=== PATIENT | male | born 2000 | race Two or more races ===

== ENCOUNTER 2025-01-09 19:17 | Emergency (ER) | payer OTHER, SELFPAY ==
[2025-01-09 19:18] VITALS: BMI 25.7
[2025-01-09 19:48] VITALS: BP 151/89; PULSE 78; RESP 18; TEMP 37; O2SAT 95
--- NOTE | 2025-01-09 19:56 | PD.EDWOUND ---
ED Wound/Laceration-RME/HPI General Chief Complaint: Wound/Laceration Stated Complaint: LACERATION TO RIGHT WRIST, WORK INJURY Time Seen by Provider: 01/09/25 19:51 Source: patient, RN notes reviewed and old records reviewed Arrival date/time: 01/09/25 19:17 Mode of arrival: ambulatory Limitations: no limitations RME / HPI RME / HPI narrative: 24yom presents to ED for hand laceration that occurred at work today. Patient reports accidentally cutting right hand on an HVAC metal pipe. 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 Related Data Previous Rx's ?Medication ?Instructions ?Recorded acetaminophen 500 mg capsule 1,000 mg (2 x 500 mg) PO Q8HR PRN 07/17/19 pain #60 caps Allergies Allergy/AdvReac Type Severity Reaction Status Date / Time No Known Allergies Allergy Verified 07/17/19 07:25 Review of Systems Review of Systems Systems Reviewed: All systems reviewed, normal except as documented Integumentary/Breasts Comments: Reports laceration Past Medical History Surgical History OTHER SURGICAL HX: Appendectomy Social History SMOKING STATUS: Never smoker SUBSTANCE USE: does not use ALCOHOL: Never Past Medical History Comments PMH COMMENT: Denies past medical history ED Exam General Limitations: Present no limitations General appearance: Present alert and in no apparent distress Head Head exam: Present atraumatic and normocephalic Eye Eye exam: Present normal appearance, PERRL and EOMI ENT ENT exam: Present normal exam and mucous membranes moist Neck Neck exam: Present normal inspection and full ROM Chest Chest inspection: Present normal inspection and symmetric chest wall rise Respiratory Respiratory exam: Present normal lung sounds bilaterally; Absent respiratory distress Cardiovascular Cardiovascular exam: Present regular rate and normal rhythm Extremities Exam Extremities exam: Present other (FROM right hand. <2s cap refill, sensation intact) Neurological Exam Neurological exam: Present alert and oriented X3 Psychiatric Psychiatric exam: Present normal affect and normal mood Skin Skin exam: Present other (1.5cm laceration to dorsal right hand. Mild wound gaping, no active bleeding) Course Quality Measures none Orders Category Date Time Status TET,DIP/PERT AC (Adult)-Tdap [Boostrix Adult (Tdap) Med 01/09/25 20:03 Discontinued Vacc] 0.5 ml IMI .ONCE ONE Vital Signs Vital signs: Vital Signs Temperature 98.6 F 01/09/25 19:48 Pulse Rate 78 01/09/25 19:48 Respiratory Rate 18 01/09/25 19:48 Blood Pressure 151/89 H 01/09/25 19:48 Pulse Oximetry (%) 95 01/09/25 19:48 Oxygen Delivery Method Room Air 01/09/25 19:48 PROCEDURES: Laceration Laceration 1: Site: hand Side (If applicable): right Size (cm): 1.5 Description: linear Depth: simple, single layer Local Anesthetic: lidocaine 1% Amount of anesthesia used (mL): 2 Pre-repair: irrigated extensively (cleaned with wound cleanser, saline) Skin layer closed with: other (ethilon) Suture size (cm): 4-0 Number of sutures: 3 Technique: simple, interrupted Wound / Laceration MDM Narrative MDM Narrative:: 24yom presents to ED for hand laceration that occurred at work today. Patient reports accidentally cutting right hand on an HVAC metal pipe. 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 Laceration repaired with sutures. Patient tolerated procedure well, condition improved. Home wound care discussed, tetanus vacc updated. Instructed to return to ED or PCP in 8-10 days for suture removal. Stable for discharge, RTED precautions given. Patient data External records reviewed:: [facility] previous records (07/17/2019 ED visit for cholelithiasis) Clinical information provided by:: patient and parent Social determinants that could affect healthcare access:: none Patient has the following chronic illnesses:: None How is presenting disease/condition affected by chronic disease/condition?: no chronic disease Evaluation data The following diagnostics were reviewed and interpreted by me:: other (specify) (None) Lab and/or radiology exams considered but not ordered:: Hand x-rays: Do not suspect fracture or foreign body Interpretation Summary: na Medications / Prescriptions Medications or Prescriptions considered but not ordered:: No antibiotics recommended at this time Medication administrations:: Medication Administration History Discontinued Medications Diphtheria/Tetanus/Acell Pertussis (Diphth,Pertuss(Acell),Tet Vac 0.5 Ml Syr- Adult) 0.5 ml IMi .ONCE ONE Stop: 01/09/25 20:04 Last Admin: 01/09/25 21:31 Dose: 0.5 ml Documented By: RC Above medication administered in ED Consultations Consultation(s) initiated? (list below): No Diagnosis Wound Differential Diagnosis: laceration, abrasion and avulsion of skin Most likely diagnosis given after review of the tests above:: hand laceration Admission Indicated Admission indicated?: not indicated Admission Request Was there a request for admission?: No Disposition Plan Disposition Plan: Discharge Discharge Attestation Discharge Attestation: The patient and all family members were given an opportunity to ask questions and understood the discharge instructions. Discharge instructions specifically effects, indications for sooner follow up or return to the emergency department, and the expected course of current diagnosis. Patient condition: Stable Discharge Plan Plan Patient Disposition: HOME (Self Care) Patient condition on transfer: Stable Prescriptions/Referrals Prescriptions/Med Rec: No Action acetaminophen 500 mg capsule 1,000 mg PO Q8HR PRN (Reason: pain) Qty: 60 0RF Referrals: Alex([facility])Rayray NP [Primary Care Provider] - In 1 week Problem List Clinical Impression: Laceration of right hand Patient/Caregiver Discharge Instructions Education Materials: ED Laceration, Hand: All Closures Additional Instructions: Return to ER or PCP in 8-10 days for suture removal. Print Language: Libyan Stand Alone Forms: Nilda Award Info., Work/School Release, Patient Portal Info Letter ROSE/LALI Supervising Physician MARY Supervising Physician: Josh
[2025-01-09] MEDS: DIPHTH,PERTUSS(ACELL),TET VAC 0.5 ML SYR- ADULT IMi (21:31)
== END 2025-01-09 21:47 | disposition home or self-care (01) ==
PROVIDERS: Emergency Provider Emergency Medicine; PCP Nurse Practitioner Family
DX: S61.511A Laceration without foreign body of right wrist, initial encounter (principal); Y99.0 Civilian activity done for income or pay; W45.8XXA Other foreign body or object entering through skin, initial encounter
CPT/HCPCS: 12002; 90471; 90715; 99281

== ENCOUNTER 2025-02-28 23:03 | Emergency (ER) | payer SELFPAY ==
[2025-02-28 23:45] VITALS: BP 147/100; PULSE 89; RESP 18; TEMP 37.2; O2SAT 98
--- NOTE | 2025-03-01 00:17 | EDNOTE_ITS ---
Upper Respiratory Inf. RME/HPI General Chief Complaint: Dental/Oral/Throat Stated Complaint: SORE THROAT Time Seen by Provider: 02/28/25 23:24 Arrival date/time: 02/28/25 23:03 RME / HPI RME / HPI Narrative: See MDM for Dr. Saravia's HPI Documentation. Related Data Previous Rx's ?Medication ?Instructions ?Recorded acetaminophen 500 mg capsule 1,000 mg (2 x 500 mg) PO Q8HR PRN 07/17/19 pain #60 caps amoxicillin 875 mg-potassium 1 tab PO BID #20 tabs clavulanate 125 mg tablet ibuprofen 800 mg tablet 800 mg PO Q8H PRN pain #30 t abs 03/01/25 prednisone 50 mg tablet 50 mg PO BID 3 days #6 tabs 03/01/25 Allergies Allergy/AdvReac Type Severity Reaction Status Date / Time No Known Allergies Allergy Verified 02/28/25 23:03 Review of Systems Review of Systems Systems Reviewed: All systems reviewed, normal except as documented Past Medical History Family History FAMILY HISTORY: Positive Family Cardiac Disorders Surgical History SURGICAL: Positive Eye Surgery and Abdominal Surgery ED Exam Narrative Physical exam: See MDM for Dr. Saravia's Physical Exam Documentation. Course Quality Measures none Orders Category Date Time Status Bedside COVID-19 Antigen Test NOW Care 02/28/25 23:56 Completed Bedside Influenza A&B Antigen Test NOW Care 02/28/25 23:56 Completed Bedside STREP Test NOW Care 02/28/25 23:56 Completed Bilirubin,Direct Stat Lab 02/28/25 23:59 Completed Blood Culture (Lab) Stat Lab 02/28/25 23:59 Results CBC Stat Lab 02/28/25 23:59 Completed CMP [Comprehensive Metabolic Panel] Stat Lab 02/28/25 23:59 Completed CRP [C-Reactive Protein] Stat Lab 02/28/25 23:59 Completed ESR [Sed Rate (ESR)] Stat Lab 02/28/25 23:59 Completed Lactate (Lactic Acid) Stat Lab 02/28/25 23:59 Completed Magnesium Stat Lab 02/28/25 23:59 Completed Wallace Screen Stat Lab 02/28/25 23:56 Completed Procalcitonin Stat Lab 02/28/25 23:59 Completed UA, C/S IF [Urinalysis, C/S if Indicated] Stat Lab 02/28/25 23:59 Stop Req Ampicillin/Sulbac Inj [Unasyn Inj] 3 gm Med 03/01/25 00:39 Discontinued Sodium Chloride 0.9% (Pop) [NS 0.9% mini bag] 100 ml IV X1 DiphenhydrAMINE INJ [Benadryl Inj] Med 03/01/25 00:48 Discontinued 50 mg IVP X1 STA Ketorolac Inj [Toradol Inj] Med 02/28/25 23:56 Discontinued 30 mg IVP X1 ONE MethylPREDNISolone.* [SoluMEDROL Inj] Med 02/28/25 23:56 Discontinued 125 mg IVP X1 ONE MethylPREDNISolone.* [SoluMEDROL Inj] Med 03/01/25 00:48 Discontinued 125 mg IVP X1 ONE Morphine* Inj Med 02/28/25 23:56 Discontinued 4 mg IV X1 ONE Ondansetron Inj [Zofran Inj] Med 02/28/25 23:56 Discontinued 4 mg IVP X1 ONE POTASSIUM CHL 10% Liq 15 ML Med 03/01/25 01:29 Discontinued 40 meq PO X1 ONE Sodium Chloride 0.9% 1000 ml [Ns] 1,000 ml Med 02/28/25 23:56 Discontinued IV 999 mls/hr Vital Signs Vital signs: Vital Signs Temperature 99.0 F 02/28/25 23:45 Pulse Rate 89 02/28/25 23:45 Respiratory Rate 18 02/28/25 23:45 Blood Pressure 147/100 H 02/28/25 23:45 Pulse Oximetry (%) 98 02/28/25 23:45 Oxygen Delivery Method Room Air 02/28/25 23:45 Upper Respiratory Infection MDM Narrative MDM Narrative:: This section includes all my notes and documentations, including HPI, PE, and ED course. Maco Saravia MD HPI: 24 y/o male presents with sore throat, voice hoarseness, and fever x 3 days. No other complaints. ROS: All negative except as documented in HPI. Physical Exam: General: Alert and oriented. Eyes: Conjunctivae and lids clear. ENT: No nasal congestion. Pharynx erythematous with exudate of the tonsils. TM normal bilaterally. Neck: Supple. Heart: RRR. Lungs: No respiratory distress. Good air movement. No rhonchi, wheezing, rales. Abdomen: Soft and nontender. Skin: Warm and dry. Neuro: Alert and oriented X 3. I reviewed all diagnostic test results: Blood tests remarkable for K 3.2. Covid/Influenza: Negative. Rapid Strep: Negative. Wallace: Negative. At this point, diagnoses include: Acute Tonsillitis Treatment here included: IVF Toradol 30 mg IV SoluMedrol 125 mg IV Morphine 4 mg I Zofran 4 mg IV Oral KCl 40 meq SoluMedrol 125 mg IV Unasyn 3 G IV Benadryl 50 mg IV Significant improvement noted. Recommended a trial of outpatient treatment. Based on my best medical judgment, made decision no further evaluation or treatment indicated at this time. Patient understands and agrees to the discharge instructions customized and printed, see below. Discharge Instructions from Dr. Saravia printed for you: 1. Take Augmentin to kill the germs causing your severe tonsillitis. 2. Prednisone to decrease swelling/inflammation of your tonsils. 3. Tylenol 1000 mg alternating with ibuprofen 800 mg every 4 hours today and tomorrow scheduled. Then as needed for fever/pain. 4. For good hydration, increase oral fluid and maintain clear urine. If dark or yellow, increase oral fluid. We need extra fluid when we are sick. 5. See a private doctor on 03/05/2025 for recheck. If you are not significantly better, ask for referral to see ENT specialist. Unfortunately, this hospital doesn't have a ENT specialist. 6. Seek immediate medical care with worsening or with any concerns. Maco Saravia MD Patient data External records reviewed:: [facility] previous records (Reviewed prior ED records from 01/09/25. Patient was seen for Laceration of right hand.) Clinical information provided by:: patient Social determinants that could affect healthcare access:: none Patient has the following chronic illnesses:: None reported. How is presenting disease/condition affected by chronic disease/condition?: no chronic disease Evaluation data The following diagnostics were reviewed and interpreted by me:: lab results Lab and/or radiology exams considered but not ordered:: None Interpretation Summary: I reviewed all diagnostic test results: Blood tests remarkable for K 3.2. Covid/Influenza: Negative. Rapid Strep: Negative. Wallace: Negative. Medications / Prescriptions Medications or Prescriptions considered but not ordered:: None Medication administrations:: Medication Administration History Discontinued Medications Diphenhydramine HCl (Diphenhydramine Inj 50 Mg/Ml Vial) 50 mg IVP X1 STA Stop: 03/01/25 00:49 Last Admin: 03/01/25 01:06 Dose: 50 mg Documented By: DAHLIA Sodium Chloride (Ns) 1,000 mls @ 999 mls/hr IV .Q1H1M ONE Stop: 03/01/25 00:56 Last Admin: 03/01/25 00:23 Dose: 999 mls/hr Documented By: ALEXANDER Ampicillin Sodium/Sulbactam (Sodium 3 gm/ Sodium Chloride) 100 mls @ 200 mls/hr IV X1 ONE Stop: 03/01/25 00:40 Last Infusion: 03/01/25 01:40 Dose: Infused Documented By: Admin: 03/01/25 01:06 Dose: 200 mls/hr Documented By: DAHLIA Ketorolac Tromethamine (Ketorolac Inj 30 Mg/Ml Vial) 30 mg IVP X1 ONE Stop: 02/28/25 23:57 Last Admin: 03/01/25 00:22 Dose: 30 mg Documented By: ALEXANDER Methylprednisolone Sodium Succinate (Methylprednisolone Sod Succ 62.5 Mg/Ml 2ml Vial) 125 mg IVP X1 ONE Stop: 02/28/25 23:57 Last Admin: 03/01/25 00:21 Dose: 125 mg Documented By: ALEXANDER Methylprednisolone Sodium Succinate (Methylprednisolone Sod Succ 62.5 Mg/Ml 2ml Vial) 125 mg IVP X1 ONE Stop: 03/01/25 00:49 Last Admin: 03/01/25 01:06 Dose: 125 mg Documented By: DAHLIA Morphine Sulfate (Morphine Sulf Inj 4 Mg/Ml Vial) 4 mg IV X1 ONE Stop: 02/28/25 23:57 Last Admin: 03/01/25 00:21 Dose: 4 mg Documented By: ALEXANDER Ondansetron HCl (Ondansetron Inj 2 Mg/Ml Inj 2 Ml) 4 mg IVP X1 ONE; Protocol Stop: 02/28/25 23:57 Last Admin: 03/01/25 00:23 Dose: 4 mg Documented By: ALEXANDER Potassium Chloride (Potassium Chloride 10% 20 Meq/15 Ml Udc) 40 meq PO X1 ONE Stop: 03/01/25 01:30 Last Admin: 03/01/25 02:02 Dose: 40 meq Documented By: CCT Treatment here included: IVF Toradol 30 mg IV SoluMedrol 125 mg IV Morphine 4 mg I Zofran 4 mg IV Oral KCl 40 meq SoluMedrol 125 mg IV Unasyn 3 G IV Benadryl 50 mg IV Consultations Consultation(s) initiated? (list below): No Diagnosis Upper Respiratory Differential Diagnosis: upper respiratory infection, croup, otitis media, sinusitis, viral infection, bronchitis, influenza and pharyngitis Most likely diagnosis given after review of the tests above:: Acute Tonsillitis Admission Indicated Admission indicated?: not indicated Explain why admission is indicated or not indicated:: With significant improvement and no condition needing emergent intervention, there was no indication for admission. Admission Request Was there a request for admission?: No Disposition Plan Disposition Plan: Discharge Discharge Attestation Discharge Attestation: The patient and all family members were given an opportunity to ask questions and understood the discharge instructions. Discharge instructions specifically effects, indications for sooner follow up or return to the emergency department, and the expected course of current diagnosis. Patient condition: Stable Discharge Plan Plan Patient Disposition: HOME (Self Care) Prescriptions/Referrals Prescriptions/Med Rec: New ibuprofen 800 mg tablet 800 mg PO Q8H PRN (Reason: pain) Qty: 30 0RF prednisone 50 mg tablet 50 mg PO BID 3 Days Qty: 6 0RF amoxicillin-pot clavulanate 875-125 mg tablet 1 tab PO BID Qty: 20 0RF No Action acetaminophen 500 mg capsule 1,000 mg PO Q8HR PRN (Reason: pain) Qty: 60 0RF Referrals: Alex([facility])Rayray NP [Primary Care Provider] - In 1 week Problem List Clinical Impression: Acute tonsillitis Patient/Caregiver Discharge Instructions Discharge Activity: activity as tolerated Education Materials: ED Tonsillitis (Child) Additional Instructions: Discharge Instructions from Dr. Saravia printed for you: 1. Take Augmentin to kill the germs causing your severe tonsillitis. 2. Prednisone to decrease swelling/inflammation of your tonsils. 3. Tylenol 1000 mg alternating with ibuprofen 800 mg every 4 hours today and tomorrow scheduled. Then as needed for fever/pain. 4. For good hydration, increase oral fluid and maintain clear urine. If dark or yellow, increase oral fluid. We need extra fluid when we are sick. 5. See a private doctor on 03/05/2025 for recheck. If you are not significantly better, ask for referral to see ENT specialist. Unfortunately, this hospital doesn't have a ENT specialist. 6. Seek immediate medical care with worsening or with any concerns. Print Language: Kinyarwanda Stand Alone Forms: Nilda Award Info., Patient Portal Info Letter
[2025-03-01] MEDS: MORPHINE SULF INJ 4 MG/ML VIAL IV (00:21)
[2025-03-01] MEDS: MethylPREDNISolone SOD SUCC 62.5 MG/ML 2ML VIAL 125 MG IVP ×2 (00:21→01:06)
[2025-03-01] MEDS: KETOROLAC INJ 30 MG/ML VIAL IVP (00:22)
[2025-03-01] MEDS: SODIUM CHLORIDE 0.9% 1000 ML 1,000 ML 999 ML IV (00:23)
[2025-03-01] MEDS: ONDANSETRON INJ 2 MG/ML INJ 2 ML 4 MG IVP (00:23)
[2025-03-01 00:43] LABS: Lactate (Lactic Acid) 1.2 mMol/L (0.4-2.0)
[2025-03-01 00:46] LABS: Basophils # (Auto) 0.1 Thou/mm3 (0.0-0.2); Basophils % (Auto) 0 % (0-2.5); Eosinophils # (Auto) 0.0 Thou/mm3 (0.0-0.5); Eosinophils % (Auto) 0 % (0-10); Hematocrit 44.8 % (41.0-53.0); Hemoglobin 15.7 g/dL (13.5-16.0); Immature Granulocytes Auto 0.09 Thou/mm3 (0.00-0.00); Lymphocytes # (Auto) 2.2 Thou/mm3 (1.0-4.8); Lymphocytes % (Auto) 10 % (10-50); Mean Corpuscular HGB Conc 35.0 g/dl (31.0-37.0); Mean Corpuscular Hemoglobin 32.3 pg (25.0-35.0); Mean Corpuscular Volume 92 fL (80-100); Monocytes # (Auto) 1.6 Thou/mm3 (0.0-0.8); Monocytes % (Auto) 8 % (0-12); Neutrophils # (Auto) 17.1 Thou/mm3 (1.8-7.7); Neutrophils % (Auto) 81 % (37-80); Nucleated Red Blood Cell # 0.00 Thou/mm3 (0.00-0.00); Nucleated Red Blood Cell % 0 /100 WBC (0); Platelet Count 283 Thou/mm3 (140-440); RDW Standard Deviation 39.6 fL (35.1-43.9); Red Blood Count 4.86 Miln/mm3 (4.50-5.90); White Blood Count 21.1 Thou/mm3 (3.8-10.6)
[2025-03-01 00:58] LABS: Sed Rate (ESR) 56 mm/hr (0-15)
[2025-03-01] MEDS: AMPICILLIN/SULBAC INJ 3 GM in SODIUM CHLORIDE 0.9% (POP) 100 ML IV (01:06)
[2025-03-01 01:13] LABS: Alanine Aminotransferase 18 U/L (10-49); Albumin, Serum 5.1 gm/dL (3.5-5.0); Albumin/Globulin Ratio 1.3 (1.2-2.2); Alkaline Phosphatase 91 U/L (46-116); Anion Gap 12 (7-16); Aspartate Amino Transferase 24 U/L (0-34); BUN/Creatinine Ratio 11 Ratio (12-20); Bilirubin,Direct 0.2 mg/dL (0.0-0.3); Bilirubin,Total 0.7 mg/dL (0.3-1.2); Blood Urea Nitrogen 11 mg/dL (9-23); C-Reactive Protein 3.3 mg/dL (0.0-0.9); Calcium 10.3 mg/dL (8.3-10.6); Calcium (Corrected) 10.3 mg/dL (8.5-10.1); Carbon Dioxide 26.1 mMol/L (20.0-31.0); Chloride 102 mMol/L (98-107); Creatinine (Component) 1.0 mg/dL (0.6-1.3); Globulin 4.0 gm/dL (2.3-3.5); Glucose 93 mg/dL (74-106); Magnesium 2.2 mg/dL (1.6-2.6); Osmolality,Calculated 278 (275-295); Potassium 3.2 mMol/L (3.4-5.1); Procalcitonin 0.04 ng/ml (0.0-0.49); Sodium 140 mMol/L (136-145); Total Protein 9.1 gm/dL (5.7-8.2); eGFR > 60 See Note
[2025-03-01 01:27] LABS: Mono Screen Negative (Negative)
[2025-03-01 01:54] VITALS: BP 103/63; PULSE 99; RESP 17; TEMP 36.8; O2SAT 98
[2025-03-01] MEDS: POTASSIUM CHLORIDE 10% 20 MEQ/15 ML UDC 40 MEQ PO (02:02)
[2025-03-01 02:54] VITALS: BP 150/91; PULSE 80; RESP 14; TEMP 36.9; O2SAT 93
== END 2025-03-01 02:54 | disposition home or self-care (01) ==
PROVIDERS: Emergency Provider Emergency Medicine; PCP Nurse Practitioner Family
DX: J03.90 Acute tonsillitis, unspecified (principal)
CPT/HCPCS: 36415; 80053; 81001; 82248; 83605; 83735; 84145; 85025; 85652; 86140; 86308; 87040; 87502; 87635; 87651; 96365; 96375; 96376; 99283; J0295; J1200; J1885; J2270; J2405; J2919; J3490; J7030; A9270